=== PATIENT | female | born 1960 | race Caucasian/White ===

== ENCOUNTER 2016-10-11 13:37 | Emergency (ER) | payer BC ==
--- NOTE | ~2016-10-11 | CR63 ---
[facility]. [facility] A Service of [facility] & [facility] RADIOLOGY TEXT RESULTS PATIENT: CHARLY PRATT LOCATION: SED : 58 UNIT #: [id number] AGE: [address]: Roseann Falk APRN SEX: F ORDER DR: [id number] [address] [address] [id number] E MR#: [id number] Acc #: [id number] NAME: CHARLY PRATT : 1960 SEX: F STUDY DATE/TIME: 10/11/2016 14:25 UNIT: SED ROOM: STUDY DESCRIPTION: CR Chest 2 View Attending Physician: Roseann Falk A.P.R.N. Ordering Physician: Roseann Brown A.P.R.N. MEDICAL IMAGING REPORT This report is preliminary unless electronic signature is present. EXAM Chest 10/11/2016 HISTORY 56-year-old woman, cough x1 week, chest pain and congestion, pain left side. COMPARISON STUDIES Comparison chest none FINDINGS PA and lateral chest views show normal cardiac size and configuration. Hilar structures are preserved. Lungs are mildly hyperinflated with subpleural blebs and bullae project in the upper lobes, slightly greater on the right. There are no infiltrates and no effusions. IMPRESSION COPD. No acute finding. Dictated by... Frantz Carlson M.D. THIS IS AN ELECTRONICALLY VERIFIED REPORT Frantz Carlson M.D. at 10/11/2016 3:56 PM Stacy TD: 10/11/2016 15:48 JOB #: [id number] MEDICAL IMAGING REPORT Page 1 of 1
[~2016-10-11 13:37] MED LIST: AMOXICILLIN875 MG PO; BP PILL; ESTROGEN PATCH; TYLENOL PM EX-S1 TA4; VIREAD300 MG PO
== END 2016-10-11 15:05 | disposition home or self-care (01) ==
LOC: SED 13:37
DX: J44.0 Chronic obstructive pulmonary disease with (acute) lower respiratory infection (principal); J20.9 Acute bronchitis, unspecified; I10 Essential (primary) hypertension; F17.210 Nicotine dependence, cigarettes, uncomplicated; Z90.710 Acquired absence of both cervix and uterus; Z79.899 Other long term (current) drug therapy
CPT/HCPCS: 71020; 99283